=== PATIENT | male | born 1965 | race Two or more races ===

== ENCOUNTER → 2018-05-08 | Outpatient (CLI) | payer BC ==
[~2018-05-08] MED LIST: LEVO75TA73 PO; OMEP40CA48 PO; VALA100059 PO
== END ==
LOC: LAB 16:34
PROVIDERS: ATTEND Internal Medicine
DX: Z02.9 Encounter for administrative examinations, unspecified (principal)

== ENCOUNTER → 2018-05-10 | Outpatient (CLI) | payer BC | LOC: LAB 09:43 | PROVIDERS: ATTEND Internal Medicine | DX: E03.9 Hypothyroidism, unspecified (principal) | CPT/HCPCS: 36415; 84443 ==